=== PATIENT | male | born 1945 | race Caucasian/White ===

== ENCOUNTER 2016-04-19 21:03 | Emergency (ER) | payer OTHER ==
[2016-04-19 21:24] VITALS: TEMP 98.1
[2016-04-19] MEDS ORDERED: IBUPROFEN 600 MG TAB PO ONE (22:33)
--- NOTE | 2016-04-19 22:36 | EDPHY ---
H & P Stated Complaint: fall 2 days ago now pain to r hip thigh Time Seen by Provider: 04/19/16 21:30 HPI/ROS: CHIEF COMPLAINT: Right knee and right groin pain HISTORY OF PRESENT ILLNESS: 70-year-old male presents emergency department complaining of right knee and right groin pain. Patient had a mechanical trip and fall down 2 stairs yesterday landing on his right knee and right hip. Patient reports he has pain in this knee and hip. He is able to ambulate. No numbness or tingling in his leg. He denies saddle anesthesias, no loss of control of his bowel or bladder. No head strike, no other complaints. REVIEW OF SYSTEMS: A comprehensive 10 point review of systems is otherwise negative aside from elements mentioned in the history of present illness. Source: Patient Exam Limitations: No limitations - Personal History Current Tetanus/Diphtheria Vaccine: Unsure Current Tetanus Diphtheria and Acellular Pertussis (TDAP): Unsure - Medical/Surgical History Hx Asthma: No Hx Chronic Respiratory Disease: No Hx Diabetes: No Hx Cardiac Disease: No Hx Renal Disease: No Hx Cirrhosis: No Hx Alcoholism: No Hx HIV/AIDS: No Hx Splenectomy or Spleen Trauma: No Other PMH: BLADDER CANCER. BLADDER - REMOVED - Social History Smoking Status: Former smoker - Physical Exam Exam: GEN: Awake, alert, oriented, no acute distress RESP: nl resp effort MSK: Right knee with full flexion and extension, tenderness to palpation to patellar tendon, mild swelling, ecchymosis to knee and anterior jauregui, right hip with full range of motion, tenderness to palpation to hip flexor, no tenderness to anterior pressure up or lateral pressure to pelvis, mild tenderness to palpation to trochanteric bursa, 2+ pedal pulses, sensation intact to light touch SKIN: Superficial abrasion right knee Constitutional: Initial Vital Signs Temperature (C) 36.7 C 04/19/16 21:19 Heart Rate 92 04/19/16 21:19 Respiratory Rate 18 04/19/16 21:19 Blood Pressure 161/86 H 04/19/16 21:19 O2 Sat (%) 99 04/19/16 21:19 O2 Delivery Mode Room Air Allergies/Adverse Reactions: No Known Allergies Allergy (Unverified 03/11/09 20:55) Home Medications: Medication Instructions Recorded Zoltan 04/19/16 Methocarbamol [Robaxin-750] 750 - 1,500 mg PO QID PRN #20 04/20/16 tablet oxyCODONE/APAP 5/325 [Percocet 1 - 2 tab PO Q6H PRN #20 tab 04/20/16 5/325] Medical Decision Making - Diagnostics Imaging: Pelvis x-ray independently reviewed by me Impression: Negative for fracture with extensive postoperative changes noted. Dictated By: Bridger Blunt MD Knee x-ray independently reviewed by me Impression: Negative for fracture. Dictated By: Bridger Blunt MD CT pelvis- Impression: Negative for fracture, specifically, right hip and right groin regions are negative. Results called and discussed with Miriam Hidalgo NP at 04/20/2016 0:25 Dictated By: Bridger Blunt MD ED Course/Re-evaluation: X-ray of pelvis and right knee obtained showing no acute fracture, to the tender miss of the patient's groin and pelvis IV CT of his pelvis. This is negative for fracture. Patient is discharged home with prescription for Percocet and Robaxin. He is ambulatory at without difficulty, he agrees to follow up with his orthopedist. He is given strict return precautions. Differential Diagnosis: Diagnosis considered but not limited to fracture, dislocation, sprain - Data Points Medications Given: Discontinued Medications Oxycodone/Acetaminophen (Percocet 5/325) 1 tab PO EDNOW ONE Stop: 04/19/16 22:43 Last Admin: 04/19/16 22:45 Dose: 1 tab Departure - Departure Disposition: Home, Routine, Self-Care Clinical Impression: Strain of flexor muscle of right hip Qualifiers: Encounter type: initial encounter Qualified Code(s): S76.011A - Strain of muscle, fascia and tendon of right hip, initial encounter Contusion of right knee Qualifiers: Encounter type: initial encounter Qualified Code(s): S80.01XA - Contusion of right knee, initial encounter Condition: Good Instructions: Muscle Strain (ED), Contusion in Adults (ED) Additional Instructions: Rest, ice, elevate, take 600mg of ibuprofen every 8 hours with food for 3-5 days as needed for pain and swelling. Take Percocet as needed for severe pain. Follow up with orthopedist for pain that is not improving. Return to the emergency department for any numbness, tingling, discoloration of you limb or other concerns. Referrals: Dolbeare,Dirk, MD [Medical Doctor] - As per Instructions (Orthopedist) Prescriptions: Methocarbamol [Robaxin-750] 750 - 1,500 mg PO QID PRN #20 tablet PRN Reason: Spasms oxyCODONE/APAP 5/325 [Percocet 5/325] 1 - 2 tab PO Q6H PRN #20 tab PRN Reason: Pain, Severe
[2016-04-19] MEDS ORDERED: OXYCODONE/APAP 5/325 TAB PO ONE (22:42)
[2016-04-20 00:34] VITALS: BP 136/87; PULSE 89; RESP 16; O2SAT 95
== END 2016-04-20 00:34 | disposition home or self-care (01) ==
DX: S76.011A Strain of muscle, fascia and tendon of right hip, initial encounter (principal); S80.01XA Contusion of right knee, initial encounter; Z85.51 Personal history of malignant neoplasm of bladder; Z87.891 Personal history of nicotine dependence; W10.9XXA Fall (on) (from) unspecified stairs and steps, initial encounter

== ENCOUNTER 2016-05-19 21:16 | Emergency (ER) | payer OTHER ==
[2016-05-19] MEDS ORDERED: NAPROXEN SODIUM 220 MG TAB PO PRN (22:13)
[2016-05-19] MEDS ORDERED: LIDOCAINE 5% 1 EA PATCH TD ONE (22:44)
--- NOTE | 2016-05-19 22:53 | EDPHY ---
H & P Time Seen by Provider: 05/19/16 21:45 HPI/ROS: This is a 71-year-old male patient presenting to the emergency department ambulatory with an antalgic gait, complaining of left ankle pain with some swelling. 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 Patient does report that he has increased his physical therapy over the past couple of months may be over utilizing the foot and ankle with a rubber-band exercise S the patient not sure. The patient also reports 6 months ago he was seen at [facility] ultrasound of left lower extremity was negative for any DVTs. Patient presents today with more for complaint of left foot pain with some swelling, questionable of whether he tripped during physical therapy patient is not too sure. Denies any other complaints REVIEW OF SYSTEMS: Constitutional: No fever no chills Cardiac: No chest pain Gastrointestinal: No nausea vomiting Musculoskeletal: Left foot and ankle pain with swelling Skin: No rash Neurological: No headache or dizziness Smoking Status: Former smoker Physical Exam: CONSTITUTIONAL: patient appeared well nourished, non-ill appearing and normally developed. No acute distress. Vital signs as documented. HEENT: Normocephalic atraumatic NECK: FROM without pain RESP: Non-labored resp effort NEURO: AAOx3 ambulatory with antalgic gait EXTREMITIES: The left foot nonpitting edema, positive pain with dorsiflexion, no obvious deformity noted no lacerations no ecchymosis Positive cms intact SKIN: Warm and dry PSYCH: Normal affect, calm, no distress Constitutional: Initial Vital Signs Temperature (C) 36.7 C 05/19/16 21:21 Heart Rate 88 05/19/16 21:21 Respiratory Rate 16 05/19/16 21:21 Blood Pressure 173/104 H 05/19/16 21:21 O2 Sat (%) 96 05/19/16 21:21 O2 Delivery Mode Room Air Allergies/Adverse Reactions: No Known Allergies Allergy (Verified 05/19/16 21:23) Home Medications: Medication Instructions Recorded Zoltan 04/19/16 oxyCODONE/APAP 5/325 [Percocet 1 - 2 tab PO Q6H PRN #20 tab 04/20/16 5/325] Lidocaine 5% [Lidoderm 5% Patch 3 ea TD DAILY #0 patch 05/19/16 (*)] Medical Decision Making - Diagnostics Imaging: Imaging Impressions Ankle X-Ray 05/19/16 22:13 Impression: 1. No acute fracture. 2. Suspect old distal fibular fracture. ED Course/Re-evaluation: Discussed plan of care: Due to patient questionable injury x-ray was ordered negative for any acute fracture, suspected old fibula fracture noted. Discussed findings with patient. Patient did say he was not aware of any fracture to his left lower extremity. We discussed using [id number] lidocaine patches to placed on Skin to see if that would alleviate with some neuropathy may be having , lidocaine patch given here placed on area of pain, sent home with prescription of lidocaine patches. Discharge home---> stable, discussed discharge instructions Differential Diagnosis: Differential diagnosis considered but not limited to ankle fracture, ankle dislocation and ankle sprain Departure - Departure Disposition: Home, Routine, Self-Care Clinical Impression: Ankle pain, chronic Qualifiers: Laterality: left Qualified Code(s): M25.572 - Pain in left ankle and joints of left foot Instructions: Arthralgia (ED) Additional Instructions: 1. Decrease strenuous activity and physical therapy on left ankle. Water therapy can be less aggressive on ankle 2. Decreased prolonged pressure on left ankle 3. Naprosyn every 12 hours as needed 4. You can use topical lidocaine patches as directed 5. Follow up with your primary care physician Referrals: HECTOR FELIPE [Primary Care Provider] - As per Instructions Prescriptions: Lidocaine 5% [Lidoderm 5% Patch (*)] 3 ea TD DAILY #0 patch
[2016-05-19 23:16] VITALS: BP 166/102; PULSE 92; RESP 20; TEMP 98.2; O2SAT 94
== END 2016-05-19 23:16 | disposition home or self-care (01) ==
DX: M25.572 Pain in left ankle and joints of left foot (principal); G89.29 Other chronic pain; Z87.891 Personal history of nicotine dependence

== ENCOUNTER → 2016-06-11 | Outpatient (CLI) | payer OTHER ==
[~2016-06-11] MED LIST: IOPAMIDOL (ISOVUE-300) 100 ML BTL IV ONE
[2016-06-11 14:22] LABS: CREATININE 0.9 mg/dL (0.7-1.3); GLOMERULAR FILTRATION RATE > 60
== END ==
LOC: FIMAGING 13:29
PROVIDERS: ATTEND Physical Medicine & Rehabilitation
DX: R10.32 Left lower quadrant pain (principal); Z85.51 Personal history of malignant neoplasm of bladder
CPT/HCPCS: Q9967

== ENCOUNTER 2016-07-16 12:45 | Emergency (ER) | payer OTHER ==
[2016-07-16 13:20] VITALS: BP 151/82; PULSE 68; RESP 18; TEMP 98.1; O2SAT 99
== END 2016-07-16 14:00 | disposition left against medical advice (07) ==
DX: Z53.21 Procedure and treatment not carried out due to patient leaving prior to being seen by health care provider (principal)

== ENCOUNTER 2016-11-28 13:05 | Inpatient (IN) | payer OTHER ==
--- NOTE | 2016-11-28 13:14 | CPEKG ---
Heart Rate: 108 RR Interval: 556 P-R Interval: 152 QRSD Interval: 92 QT Interval: 320 QTC Interval: 429 P [place]: 76 QRS [place]: 61 T Wave [place]: -53 EKG Severity - OTHERWISE NORMAL ECG - EKG Impression: SINUS TACHYCARDIA EKG Impression: T-wave abnormalities inferior leads Electronically Signed By: Micah Oliver 28-Nov-2016 13:26:46
[2016-11-28] MEDS ORDERED: NS 1,000 ML IV ONE (13:30)
[2016-11-28] MEDS ORDERED: ASPIRIN 81 MG CHEWABLE TAB PO ONE (13:30)
[2016-11-28 13:38] LABS: % IMMATURE GRANULYOCYTES 0.4 % (0.0-1.1); ABSOLUTE IMMATURE GRANULOCYTES 0.03 10^3/uL (0.00-0.10); ADD DIFF? NO; ADD MORPH? YES; ADD SCAN? NO; ATYPICAL LYMPHOCYTE FLAG 10 (0-99); FRAGMENT RBC FLAG 90 (0-99); HEMATOCRIT 39.6 % (40.0-51.0); HEMOGLOBIN 12.1 g/dL (13.7-17.5); LEFT SHIFT FLG 0 (0-99); LIPEMIA HEMOLYSIS FLAG 80 (0-99); MEAN CELL HEMOGLOBIN 19.2 pg (27.9-34.1); MEAN CELL HEMOGLOBIN CONCENTR. 30.6 g/dL (32.4-36.7); PLATELET CLUMPS FLAG 60 (0-99); PLATELET COUNT 225 10^3/uL (150-400)
--- NOTE | 2016-11-28 13:39 | EDPHY ---
H & P Stated Complaint: syconeal episoide on toliet, took oxycodone prior to episoide Time Seen by Provider: 11/28/16 13:24 HPI/ROS: CHIEF COMPLAINT: Syncope HISTORY OF PRESENT ILLNESS: The patient is a 71-year-old man who follows with Dr. Lynch and is currently receiving IVIG therapy for chronic intermittent demyelinating polyneuropathy. His last IVIG infusion was 1 week ago. He also had a flu shot done yesterday and is a history of mitral valve prolapse and bladder cancer with a neobladder. He states that he is taking much more medication than he is used to including prednisone 5 mg daily and oxycodone and Aleve. He states that as he was walking up the stairs to go to the bathroom he felt extremely dizzy. He had to sit down on the bed to feel better. He complained to his of chest discomfort and shortness of breath. He felt a little better and then went to the bathroom and while having a bowel movement loss consciousness. He told his that he was going to . His states that he was pale and diaphoretic. She was able to get him off the floor and called 911. The patient went to the kitchen and was washing his hands when he felt lightheaded began to faint again but his caught him. At that point EMS arrived and brought him to the emergency department. He was also slightly hypoxic at triage. REVIEW OF SYSTEMS: Constitutional: denies: chills, fever, recent illness, recent injury EENTM: denies: blurred vision, double vision, nose congestion Respiratory: See HPI Cardiac: See HPI Gastrointestinal/Abdominal: denies: abdominal pain, diarrhea, nausea, vomiting, blood streaked stools Genitourinary: denies: dysuria, frequency, hematuria, pain Musculoskeletal: denies: joint pain, muscle pain Skin: denies: lesions, rash, jaundice, bruising Neurological: denies: headache, numbness, paresthesia, tingling, dizziness, weakness Hematologic/Lymphatic: denies: blood clots, easy bleeding, easy bruising Immunologic/allergic: denies: HIV/AIDS, transplant EXAM: GENERAL: Well-appearing, well-nourished and in no acute distress. HEAD: Atraumatic, normocephalic. EYES: Pupils equal round and reactive to light, extraocular movements intact, sclera anicteric, conjunctiva are normal. ENT: TMs normal, nares patent, oropharynx clear without exudates. Moist mucous membranes. NECK: Normal range of motion, supple without lymphadenopathy or JVD. LUNGS: Breath sounds clear to auscultation bilaterally and equal. No wheezes rales or rhonchi. HEART: Tachycardic Regular rate and rhythm without murmurs, rubs or gallops. ABDOMEN: Soft, nontender, normoactive bowel sounds. No guarding, no rebound. No masses appreciated. BACK: No CVA tenderness, no spinal tenderness, step-offs or deformities EXTREMITIES: Normal range of motion, no pitting or edema. No clubbing or cyanosis. NEUROLOGICAL: Cranial nerves II through XII grossly intact. Normal speech, normal gait. 5/5 strength, normal movement in all extremities, normal sensation PSYCH: Normal mood, normal affect. SKIN: Warm, dry, normal turgor, no visible rashes or lesions. 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, MVP, CIDP - Family History Significant Family History: No pertinent family hx - Social History Smoking Status: Former smoker Alcohol Use: Sober Drug Use: None Constitutional: Initial Vital Signs Temperature (C) 36.6 C 11/28/16 13:12 Heart Rate 106 H 11/28/16 13:12 Respiratory Rate 22 H 11/28/16 13:12 Blood Pressure 101/70 11/28/16 13:12 O2 Sat (%) 87 L 11/28/16 13:12 O2 Delivery Mode Nasal Cannula O2 (L/minute) 2 Allergies/Adverse Reactions: No Known Allergies Allergy (Verified 05/19/16 21:23) Home Medications: Medication Instructions Recorded Acetaminophen [Tylenol ES 500 mg 500 mg PO Q6 PRN 11/28/16 (*)] Cholecalciferol Vit D3 [Vitamin D3 2,000 units PO HS 11/28/16 (*)] Clobetasol 0.05% [Temovate Cream] 1 aristeo TP DAILY PRN 11/28/16 Docusate Sodium [Colace 100 MG (*)] 300 mg PO DAILY 11/28/16 Immun Glob G(IgG)/Gly/Iga 0-50 100 ml IV Q30D 11/28/16 [Gammaplex 10 Gram/100 ml Vial] Latanoprost 0.005% [Xalatan 0.005% 1 drops EACHEYE HS 11/28/16 (*)] Levocetirizine Dihydrochloride 5 mg PO DAILY 11/28/16 [Xyzal] Naloxegol Oxalate [Movantik] 25 mg PO DAILY 11/28/16 Naproxen Sodium [Aleve 220 MG (*)] 220 mg PO BID PRN 11/28/16 Nortriptyline HCl [Pamelor 25 mg 75 mg PO HS 11/28/16 (*)] Timolol 0.5% [TIMOPTIC 0.5% (*)] 1 drop EACHEYE DAILY 11/28/16 oxyCODONE IR [Oxycodone Ir (*)] 5 mg PO Q8H PRN 11/28/16 predniSONE 5 mg PO DAILY 11/28/16 Medical Decision Making - Diagnostics EKG Interpretation: An EKG obtained and was read and documented in trace view. Please see trace view for full reading and report. Sinus tachycardia with inferior T-wave abnormalities nonspecific ED Course/Re-evaluation: Patient's EKG arrived from the clinic. It is not have T-wave abnormalities in February of this year. We discussed the CT results. I will start him on heparin. I I discussed the case with Dr. Gonzales who will admit to the step- down unit. He requests echocardiogram. We discussed tPA and agreed not to pursue at this time. Differential Diagnosis: Partial list of the Differential diagnosis considered include but were not limited to; PE, arrhythmia, acute coronary disease and although unlikely based on the history and physical exam, I also considered vertigo, seizure, stroke. Critical Care Time: Critical care time spent by me, Dr. Oliver exclusive with this patient was 45 minutes, exclusive of the PA time exclusive of procedures. The organ system that was at risk was cardiovascular and I gave IV fluids, anticoagulants, consultation and testing to prevent worsening of the patient's condition - Data Points Laboratory Results: Laboratory Results 11/28/16 13:10 11/28/16 13:10 Medications Given: Acetaminophen (Tylenol) 650 mg PO Q4HRS PRN PRN Reason: Pain, Mild/Fever, Can Take PO Stop: 05/27/17 15:23 Last Admin: 11/29/16 12:31 Dose: 325 mg Cholecalciferol (Vitamin D) 2,000 units PO HS [facility] Stop: 05/27/17 20:59 Last Admin: 11/28/16 23:05 Dose: Not Given Docusate Sodium (Colace) 300 mg PO DAILY [facility] Stop: 05/28/17 08:59 Last Admin: 11/29/16 09:06 Dose: 300 mg Heparin Sodium (Porcine) (Heparin 50 Units/Ml (Premix)) 500 mls @ 0 mls/hr IV CONT ALIYA; Per Protocol PRN Reason: Protocol Stop: 05/27/17 15:44 Last Admin: 11/28/16 21:30 Dose: 500 mls Miscellaneous Medication (Non-Formulary) 1 ea PO DAILY [facility] Stop: 05/28/17 08:59 Last Admin: 11/29/16 09:03 Dose: 1 tab Miscellaneous Medication (Naloxegol Oxalate [Movantik]) 25 mg PO DAILY [facility] Stop: 05/28/17 08:59 Last Admin: 11/29/16 09:05 Dose: 1 tab Oxycodone HCl (Oxycodone Ir) 5 mg PO Q8H PRN PRN Reason: Pain, Breakthrough Stop: 12/08/16 16:20 Last Admin: 11/29/16 05:54 Dose: 5 mg Oxycodone/Acetaminophen (Percocet 5/325) 1 - 2 tab PO Q4HRS PRN PRN Reason: Pain, Severe Able to Take PO Stop: 12/08/16 15:23 Last Admin: 11/29/16 12:30 Dose: 1 tab Prednisone (Prednisone) 5 mg PO DAILY [facility] Stop: 05/28/17 08:59 Last Admin: 11/29/16 08:59 Dose: 5 mg Timolol Maleate (Timoptic 0.5%) 1 drops EACHEYE DAILY [facility] Stop: 05/28/17 08:59 Last Admin: 11/29/16 09:01 Dose: 2 drop Discontinued Medications Albuterol/Ipratropium (Duoneb) 3 ml IH QID [facility] Stop: 05/27/17 15:59 Last Admin: 11/28/16 22:41 Dose: Not Given Aspirin (Aspirin) 324 mg PO EDNOW ONE Stop: 11/28/16 13:31 Last Admin: 11/28/16 13:56 Dose: 324 mg Heparin Sodium (Porcine) (Heparin Injection) 0 unit IVP EDNOW ONE PRN Reason: Protocol Stop: 11/28/16 15:21 Last Admin: 11/28/16 16:00 Dose: 4,100 unit Heparin Sodium (Porcine) (Heparin Injection) 0 unit IVP ONCE ONE PRN Reason: Protocol Stop: 11/28/16 15:41 Last Admin: 11/28/16 22:59 Dose: Not Given Sodium Chloride (Ns) 1,000 mls @ 0 mls/hr IV EDNOW ONE; Wide Open PRN Reason: Protocol Stop: 11/28/16 13:31 Last Admin: 11/28/16 13:56 Dose: 1,000 mls Heparin Sodium (Porcine) (Heparin 50 Units/Ml (Premix)) 500 mls @ 0 mls/hr IV EDNOW ONE; Per Protocol PRN Reason: Protocol Stop: 11/28/16 15:21 Last Admin: 11/28/16 16:00 Dose: 500 mls Latanoprost (Xalatan 0.005%) 1 drops EACHEYE [facility] Stop: 05/27/17 20:59 Last Admin: 11/28/16 23:05 Dose: Not Given Nortriptyline HCl (Pamelor) 75 mg PO [facility] Stop: 05/27/17 20:59 Last Admin: 11/28/16 23:01 Dose: Not Given Departure - Departure Disposition: [facility] Clinical Impression: Bilateral pulmonary embolism Condition: Fair
[2016-11-28 13:41] LABS: MEAN CELL VOLUME 62.9 fL (81.5-99.8); RED CELL DISTRIBUTION WIDTH 24.5 % (11.5-15.2)
[2016-11-28 13:42] LABS: ANION GAP 11 mEq/L (8-16); CALCIUM 9.5 mg/dL (8.5-10.4); CARBON DIOXIDE 24 mEq/l (22-31); CHLORIDE 103 mEq/L (97-110); GLOMERULAR FILTRATION RATE > 60; GLUCOSE 129 mg/dL (70-100); POTASSIUM 3.8 mEq/L (3.5-5.2); SODIUM 138 mEq/L (134-144)
[2016-11-28 13:51] LABS: INR 0.98 (0.83-1.16); PROTIME(PATIENT) 12.9 SEC (12.0-15.0)
[2016-11-28 13:52] LABS: APTT 25.8 SEC (23.0-38.0)
[2016-11-28 13:54] LABS: TROPONIN I < 0.012 ng/mL (0.000-0.034)
[2016-11-28 14:08] LABS: HYPOCHROMIA 2+; MACROCYTES 1+; MICROCYTES 2+; POLYCHROMASIA 1+
[2016-11-28 14:10] LABS: PLATELET ESTIMATE ADEQUATE (ADEQ); TARGET CELLS 1+
[2016-11-28] MEDS ORDERED: IOPAMIDOL (ISOVUE 370) 100 ML BTL IV ONE (14:15)
[2016-11-28] MEDS ORDERED: HEPARIN 10,000 UNIT/10 ML MDV IVP ONE ×2 (15:20→15:40)
[2016-11-28] MEDS ORDERED: HEPARIN/DEXTROSE 500 ML IV ONE (15:20)
[2016-11-28] MEDS ORDERED: ONDANSETRON 4 MG/2 ML VIAL IVP PRN (15:24)
[2016-11-28] MEDS ORDERED: ONDANSETRON DISINTEGRATING 4 MG TAB PO PRN (15:24)
[2016-11-28] MEDS ORDERED: OXYCODONE/APAP 5/325 TAB PO PRN (15:24)
[2016-11-28] MEDS ORDERED: LORazepam 0.5 MG TAB PO PRN (15:24)
[2016-11-28] MEDS ORDERED: LORazepam 2 MG/ML INJ IVP PRN (15:24)
[2016-11-28] MEDS ORDERED: HEPARIN 10,000 UNIT/10 ML MDV IVP PRN (15:40)
[2016-11-28] MEDS ORDERED: HEPARIN/DEXTROSE 500 ML IV SCH (15:45)
[2016-11-28] MEDS ORDERED: ACETAMINOPHEN 500 MG TAB PO PRN (16:21)
[2016-11-28] MEDS ORDERED: CLOBETASOL 0.05% 15 GM CRTUBE TP PRN (16:21)
--- NOTE | 2016-11-28 17:26 | PDGENHP ---
History and Physical - Chief Complaint syncope - History of Present Illness This is a 71 yo male with a hx of LLE DVT p/w chest pain and syncope while having a BM. CTA c/w bilateral moderate to large volume P.E. involving all lobes. Earlier today he felt his chest tight when walking up the stairs and he was dizzy. This resolved but then while having a BM he became diaphoretic and had a syncopal episode. In the ED, CTA was obtained with results per above. EKG c/w T wave abnormalities in the inferior leads, but troponin was negative. He was treated on Xarelto for non provoked LLE DVT for 3 months and stopped on November 15. He was recently diagnosed with CIDP and has been receiving IVIG with his last treatment about a week ago. He does not have known CAD, CHF, Afib, or CV disease. He c/o of bilateral leg pain which is essentially unchanged and is chronic. He does have LLE swelling/edema but he says this is chronic. He had a repeat LLE US before stopping Xarelto in early November and this was negative for DVT. He does not have a prior hx of P.E. He does not have known hypercoagulable disease. He denies constitutional sxs. Currently he denies any chest pain, palpitations, or SOB. He is on 2 L by LA. He is able to take a deep breath. He is able to ambulate w/o difficulty. He feels back to baseline PMHX: bladder cancer, LE neuropathy, CIDP, Left sciatic nerve injury, MVP SocHx: former smoker, no E/I FmHx: LA History Information - Allergies/Home Medication List Allergies/Adverse Reactions: No Known Allergies Allergy (Verified 05/19/16 21:23) Home Medications: Acetaminophen [Tylenol ES 500 mg (*)] 500 mg PO Q6 PRN 11/28/16 [Last Taken 09:00] Cholecalciferol Vit D3 [Vitamin D3 (*)] 2,000 units PO HS 11/28/16 [Last Taken 11/27/16] Clobetasol 0.05% [Temovate Cream] 1 aristeo TP DAILY PRN 11/28/16 [Last Taken 2 Days Ago ~11/26/16] Docusate Sodium [Colace 100 MG (*)] 300 mg PO DAILY 11/28/16 [Last Taken ] Immun Glob G(IgG)/Gly/Iga 0-50 [Gammaplex 10 Gram/100 ml Vial] 100 ml IV Q30D [Last Taken 5 Days Ago ~11/23/16] Latanoprost 0.005% [Xalatan 0.005% (*)] 1 drops EACHEYE HS 11/28/16 [Last Taken 11/27/16] Levocetirizine Dihydrochloride [Xyzal] 5 mg PO DAILY 11/28/16 [Last Taken ] Naloxegol Oxalate [Movantik] 25 mg PO DAILY 11/28/16 [Last Taken 11/28/16] Naproxen Sodium [Aleve 220 MG (*)] 220 mg PO BID PRN 11/28/16 [Last Taken 09:00] Nortriptyline HCl [Pamelor 25 mg (*)] 75 mg PO HS 11/28/16 [Last Taken 11/27/16] Timolol 0.5% [TIMOPTIC 0.5% (*)] 1 drop EACHEYE DAILY 11/28/16 [Last Taken 11/28] oxyCODONE IR [Oxycodone Ir (*)] 5 mg PO Q8H PRN 11/28/16 [Last Taken 11/28/16 11 :00] predniSONE 5 mg PO DAILY 11/28/16 [Last Taken 11/28/16] I have personally reviewed and updated: medical history, social history, surgical history - Social History Smoking Status: Former smoker Alcohol Use: Sober Drug Use: None Review of Systems Review of Systems: ROS: 10pt was reviewed & negative except for what was stated in HPI & below Physical Exam Physical Exam: Temp Pulse Resp BP Pulse Ox 36.9 C 78 18 132/85 H 96 11/28/16 14:00 11/28/16 14:00 11/28/16 14:00 11/28/16 14:00 11/28/16 14:00 Constitutional: no apparent distress, appears nourished, not in pain Eyes: PERRL, EOMI Ears, Nose, Mouth, Throat: moist mucous membranes, hearing normal Cardiovascular: regular rate and rhythym, no murmur, rub, or gallop, edema (LLE edema 1+) Respiratory: no respiratory distress, no rales or rhonchi, clear to auscultation Gastrointestinal: normoactive bowel sounds, soft, non-tender abdomen Skin: warm Neurologic: AAOx3 Psychiatric: interacting appropriately, not anxious, not encephalopathic Lab Data & Imaging Review 11/28/16 13:10 11/28/16 13:10 WBC 7.76 10^3/uL (3.80-9.50) 11/28/16 13:10 RBC 6.30 10^6/uL (4.40-6.38) 11/28/16 13:10 Hgb 12.1 g/dL (13.7-17.5) L 11/28/16 13:10 Hct 39.6 % (40.0-51.0) L 11/28/16 13:10 MCV 62.9 fL (81.5-99.8) L 11/28/16 13:10 MCH 19.2 pg (27.9-34.1) L 11/28/16 13:10 MCHC 30.6 g/dL (32.4-36.7) L 11/28/16 13:10 RDW 24.5 % (11.5-15.2) H 11/28/16 13:10 Plt Count 225 10^3/uL (150-400) 11/28/16 13:10 MPV TNP 11/28/16 13:10 Neut % (Auto) 75.7 % (39.3-74.2) H 11/28/16 13:10 Lymph % (Auto) 13.1 % (15.0-45.0) L 11/28/16 13:10 Brewster % (Auto) 8.0 % (4.5-13.0) 11/28/16 13:10 Eos % (Auto) 2.2 % (0.6-7.6) 11/28/16 13:10 Baso % (Auto) 0.6 % (0.3-1.7) 11/28/16 13:10 Nucleat RBC Rel Count 0.0 % (0.0-0.2) 11/28/16 13:10 Absolute Neuts (auto) 5.87 10^3/uL (1.70-6.50) 11/28/16 13:10 Absolute Lymphs (auto) 1.02 10^3/uL (1.00-3.00) 11/28/16 13:10 Absolute Monos (auto) 0.62 10^3/uL (0.30-0.80) 11/28/16 13:10 Absolute Eos (auto) 0.17 10^3/uL (0.03-0.40) 11/28/16 13:10 Absolute Basos (auto) 0.05 10^3/uL (0.02-0.10) 11/28/16 13:10 Absolute Nucleated RBC 0.00 10^3/uL (0-0.01) 11/28/16 13:10 Immature Gran % 0.4 % (0.0-1.1) 11/28/16 13:10 Immature Gran # 0.03 10^3/uL (0.00-0.10) 11/28/16 13:10 Platelet Estimate ADEQUATE (ADEQ) 11/28/16 13:10 Polychromasia 1+ H 11/28/16 13:10 Hypochromasia 2+ H 11/28/16 13:10 Microcytic Cells 2+ H 11/28/16 13:10 Target Cells 1+ H 11/28/16 13:10 Oval Macrocytes 1+ H 11/28/16 13:10 PT 12.9 SEC (12.0-15.0) 11/28/16 13:10 INR 0.98 (0.83-1.16) 11/28/16 13:10 APTT 25.8 SEC (23.0-38.0) 11/28/16 13:10 D-Dimer 15.80 ug/mLFEU (0.00-0.50) H 11/28/16 13:10 Sodium 138 mEq/L (134-144) 11/28/16 13:10 Potassium 3.8 mEq/L (3.5-5.2) 11/28/16 13:10 Chloride 103 mEq/L (97-110) 11/28/16 13:10 Carbon Dioxide 24 mEq/l (22-31) 11/28/16 13:10 Anion Gap 11 mEq/L (8-16) 11/28/16 13:10 BUN 26 mg/dL (7-23) H 11/28/16 13:10 Creatinine 1.0 mg/dL (0.7-1.3) 11/28/16 13:10 Estimated GFR > 60 11/28/16 13:10 Glucose 129 mg/dL (70-100) H 11/28/16 13:10 Calcium 9.5 mg/dL (8.5-10.4) 11/28/16 13:10 Troponin I < 0.012 ng/mL (0.000-0.034) 11/28/16 13:10 Assessment & Plan Assessment: #Bilateral P.E. with evidence of Right Hear Strain #Extensive LLE DVT #Chest pain #Syncope likely due to the P.E. and right hear strain Plan: The patient currently appears stable and does not report symptoms. Heparin has been started in the E.D. CT shows extensive bilateral clots as well as right sided strain.. He is hemodynamically stable. I have ordered a LLE US which shows extensive LLE DVT thigh down. Given the findings, I have d/w IR placement of IVC filter today. Troponin was negative. I have ordered a stat TTE and repeat troponin. As he is not currently symptomatic and if TTE is acceptable, will avoid TPA. Cont with Heparin drip. Will be admitted to step down. He is currently NPO. He will need lifelong AC. Will likely need to avoid IVIG. Code status full code Total critical care time spent directly on pt care including coordination of care is 85 minutes
[2016-11-28] MEDS ORDERED: NS W/ 20 KCl/L 1,000 ML IV SCH (17:45)
[2016-11-28] MEDS ORDERED: fentaNYL 100 MCG/2 ML INJ ONE (19:08)
[2016-11-28] MEDS ORDERED: MIDAZOLAM 2 MG/2 ML VIAL ONE (19:10)
[2016-11-28] MEDS ORDERED: IOPAMIDOL (ISOVUE-300) 100 ML BTL ONE (19:55)
--- NOTE | 2016-11-28 19:57 | POSTOPPROG ---
Post Op Note Date of Operation: 11/28/16 Surgeon: Ab Barrios Anesthesia: IV Sedation Pre-op Diagnosis: PE, DVT LLE Post-op Diagnosis: same Indication: Moderately large volume PE, mod large volume DVT Procedure: IVC filter Findings: Normal IVC. Filter in good position L2-3 Inf/Abcess present in the surg proc area at time of surgery?: No EBL: Minimal Complications: 0
[2016-11-28] MEDS ORDERED: oxyCODONE IR 5 MG TAB ONE (20:29)
[2016-11-28] MEDS: oxyCODONE IR 5 MG TAB PO PRN (20:31)
[2016-11-28] MEDS ORDERED: NORTRIPTYLINE HCL 25 MG CAP PO SCH (21:00)
[2016-11-28] MEDS ORDERED: LATANOPROST 0.005% 2.5 ML OPHT DROPS EACHEYE SCH (21:00)
[2016-11-28] MEDS: IPRATROPIUM/ALBUTEROL 3 ML DEYVIAL IH SCH ×2 (22:02→22:41)
[2016-11-28] MEDS ORDERED: IPRATROPIUM/ALBUTEROL 3 ML DEYVIAL IH PRN (22:47)
[2016-11-28] MEDS: CHOLECALCIFEROL VIT D3 2,000 UNITS TAB/CAP PO SCH (23:05)
[2016-11-29] MEDS: ACETAMINOPHEN 325 MG TAB PO PRN ×3 (02:00→21:13)
[2016-11-29 04:03] LABS: % IMMATURE GRANULYOCYTES 0.2 % (0.0-1.1); ABSOLUTE IMMATURE GRANULOCYTES 0.02 10^3/uL (0.00-0.10); ADD DIFF? NO; ADD MORPH? YES; ADD SCAN? NO; ATYPICAL LYMPHOCYTE FLAG 0 (0-99); FRAGMENT RBC FLAG 80 (0-99); HEMATOCRIT 33.1 % (40.0-51.0); HEMOGLOBIN 10.3 g/dL (13.7-17.5); LEFT SHIFT FLG 0 (0-99); LIPEMIA HEMOLYSIS FLAG 80 (0-99); MEAN CELL HEMOGLOBIN 19.1 pg (27.9-34.1); MEAN CELL HEMOGLOBIN CONCENTR. 31.1 g/dL (32.4-36.7); PLATELET CLUMPS FLAG 40 (0-99); PLATELET COUNT 193 10^3/uL (150-400); RED BLOOD CELL COUNT 5.39 10^6/uL (4.40-6.38)
[2016-11-29 04:04] LABS: MEAN CELL VOLUME 61.4 fL (81.5-99.8); RED CELL DISTRIBUTION WIDTH 23.5 % (11.5-15.2)
[2016-11-29 04:32] LABS: ELLIPTOCYTES 1+; HYPOCHROMIA 2+; MACROCYTES 1+; MICROCYTES 2+; POLYCHROMASIA 1+; TARGET CELLS 1+
[2016-11-29 04:34] LABS: LARGE PLATELETS PRESENT; PLATELET ESTIMATE ADEQUATE (ADEQ)
[2016-11-29 04:40] LABS: ANION GAP 7 mEq/L (8-16); CARBON DIOXIDE 22 mEq/l (22-31); CHLORIDE 107 mEq/L (97-110); CREATININE 0.8 mg/dL (0.7-1.3); GLOMERULAR FILTRATION RATE > 60; GLUCOSE 92 mg/dL (70-100); MAGNESIUM 1.8 mg/dL (1.6-2.3); POTASSIUM 3.7 mEq/L (3.5-5.2); SODIUM 136 mEq/L (134-144)
[2016-11-29] MEDS: oxyCODONE IR 5 MG TAB PO PRN ×2 (05:54→18:20)
--- NOTE | 2016-11-29 08:24 | PDMN ---
Medical Necessity Medical necessity: M290 Pulm. embolism- bilat. mod to large volume, 87% RA, 96 % 2L., EKG c T wave abnormalities, - R heart strain, M350 DVT - extensive DVT LLE, IVC filter placed. - pt with HX of CIDP last IVIG 1 week ago., HX of DVT previously on Xarelto- stopped two weeks ago.
[2016-11-29] MEDS: predniSONE 5 MG TAB PO SCH (08:59)
[2016-11-29] MEDS ORDERED: TIMOLOL 0.5% 15 ML OPHT.BTL EACHEYE SCH (09:00)
[2016-11-29] MEDS ORDERED: Naloxegol Oxalate [Movantik] 25 MG PO SCH (09:00)
[2016-11-29] MEDS ORDERED: CETIRIZINE 10 MG TAB PO SCH (09:00)
[2016-11-29] MEDS: TIMOLOL 0.5% 15 ML OPHT.BTL EACHEYE SCH (09:01)
[2016-11-29] MEDS: LEVOCETIRIZINE 5 MG PO SCH (09:03)
[2016-11-29] MEDS: Naloxegol Oxalate [Movantik] 25 MG PO SCH (09:05)
[2016-11-29] MEDS: DOCUSATE SODIUM 100 MG CAP PO SCH (09:06)
--- NOTE | 2016-11-29 09:18 | CPEKG ---
Heart Rate: 103 RR Interval: 583 P-R Interval: 168 QRSD Interval: 88 QT Interval: 328 QTC Interval: 430 P [place]: 78 QRS [place]: 71 T Wave [place]: -50 EKG Severity - ABNORMAL ECG - EKG Impression: SINUS TACHYCARDIA EKG Impression: PROBABLE LEFT ATRIAL ABNORMALITY EKG Impression: NONSPECIFIC T ABNORMALITIES, INFERIOR LEADS Electronically Signed By: Gino Sapp 29-Nov-2016 13:44:35
--- NOTE | 2016-11-29 10:29 | ECHO ---
[email or web address] [address] [address] Main: [phone] Fax: Transthoracic Echocardiogram Name: JUAN J RENEE MR#: [id number] Study Date: 11/28/2016 Study Time: 05:52 PM Date of : 1945 Age: 71 year(s) Height: 175.3 cm (69 in.) Weight: 68.04 kg (150 lb.) BSA: 1.83 m2 Gender: Male Examination: Echo Indication: Chest pain/Pulmonary embolus Image Quality: Contrast: Requested by: Micah Oliver BP: / Heart Rate: Rhythm: Indication: Chest pain/Pulmonary embolus Procedure Staff Field Technical Assistant: Cindy Wise Reading Physician: Bea Eldridge Requesting Provider: Conclusions: Normal size left ventricle. Borderline concentric LV hypertrophy. Normal global systolic LV function. EF is 65 %. The LV septal wall is flattened.. Mildly dilated right ventricle. Mildly reduced RV function. The right atrium is mildly dilated. Mild mitral valve regurgitation is present. Mild tricuspid regurgitation is present. The pulmonary artery pressure is mildly increased. RVSP is 45mmHG.. There is no previous echocardiogram for comparison. Measurements: Chambers Valvular Assessment AV/MV Valvular Assessment TV/PV Normal Normal Normal Name Value Range Name Value Range Name Value Range Ao Beth (MM): 3.2 cm (2.2 cm-3.7 AV Vmax: 1.08 m/s (1 m/s-1.7 TR Vmax: 3.00 mm/s ( - ) cm) m/s) TR PGmax: 36 mmHg ( - ) IVSd (2D): 0.8 cm (0.6 cm-1.1 AV maxP mmHg ( - ) syst. PAP: 46 mmHg ( - ) cm) LVDd (2D): 4.8 cm (4.2 cm-5.9 cm) LVDs (2D): 2.8 cm (2.1 cm-4 cm) LVPWd (2D): 1.0 cm (0.6 cm-1 cm) LVEF (MOD4): 65 % (>=55 %) Patient: JUAN J RENEE Study Date: 11/28/2016 Page 1 of 2 05:52 PM Continued Measurements: Chambers Valvular Assessment TV/PV Name Value Name Value LADs: 3.0 cm CVP (est.): 10 mmHg LADs Lon.5 cm LA Area: 15.1 cm2 Findings: Left Ventricle: Normal size left ventricle. Borderline concentric LV hypertrophy. Normal global systolic LV function. EF is 65 %. The LV septal wall is flattened.. Right Ventricle: Mildly dilated right ventricle. Mildly reduced RV function. Left Atrium: The left atrium is normal in size. Right Atrium: The right atrium is mildly dilated. Mitral Valve: The mitral valve is normal in appearance. Mild mitral valve regurgitation is present. Aortic Valve: The aortic valve is normal in appearance. Tricuspid Valve: The tricuspid valve appears normal. Mild tricuspid regurgitation is present. The pulmonary artery pressure is mildly increased. RVSP is 45mmHG.. Pulmonic Valve: Pulmonary valve not well visualized. Pericardium: Trivial pericardial effusion. (No Signature Object) Patient: JUAN J RENEE Study Date: 11/28/2016 Page 2 of 2 05:52 PM [id number]
[2016-11-29] MEDS ORDERED: WARFARIN SODIUM 5 MG TAB PO SCH (16:00)
--- NOTE | 2016-11-29 16:10 | HOSPPROG ---
Hospitalist Progress Note Assessment/Plan: * Large acute PE + DVT -s/p IVC placement due to high risk DVT -removed IVC filter 6-8 weeks -hypercoagulable - came off Xarelto recently * Possible anti-phospholipid antibody syndrome -consult hematology to review outpatient labs -transition to warfarin rather than Xarelto * CIDP -monthly IVIG * Bladder Ca s/p neobladder * Hematuria -develops gross blood when on anti-coagulation -check renal US * Microcytic anemia - check iron studies -chronic blood loss - hematuria and hemorrhoid bleed when anticoagulated * Syncope -due to right heart strain Subjective: Lots of left leg pain Objective: Vital Signs Temp Pulse Resp BP Pulse Ox 36.7 C 95 27 H 129/81 H 97 11/29/16 13:05 11/29/16 12:00 11/29/16 12:00 11/29/16 12:00 11/29/16 12:00 Laboratory Results 11/29/16 03:50 11/29/16 03:50 11/28/16 11/29/16 11/30/16 05:59 05:59 05:59 Intake Total 808 Balance 808 PT 12.9 SEC (12.0-15.0) 11/28/16 13:10 INR 0.98 (0.83-1.16) 11/28/16 13:10 d/w Dr. Lev Aleman ICU rounds - large PE, doing well now d/w Dr. Wills - hematology to consult tele - NSR EKG viewed, my personal interpretation is - NSR, no concerning changes - Physical Exam Constitutional: no apparent distress, appears nourished, not in pain Cardiovascular: regular rate and rhythym, no murmur, rub, or gallop Respiratory: no respiratory distress, no rales or rhonchi, clear to auscultation Gastrointestinal: normoactive bowel sounds, soft, non-tender abdomen, no palpable masses Skin: no rashes or abrasions, no fluctuance, no induration Neurologic: AAOx3, sensation intact bilaterally Psychiatric: interacting appropriately, not anxious, not encephalopathic, thought process linear ICD10 Worksheet Patient Problems: Problems Problem Status Onset Bilateral pulmonary embolism Acute
[2016-11-29] MEDS: CHOLECALCIFEROL VIT D3 2,000 UNITS TAB/CAP PO SCH (20:58)
[2016-11-29] MEDS ORDERED: LATANOPROST 0.005% 2.5 ML OPHT DROPS EACHEYE SCH (21:00)
[2016-11-29] MEDS ORDERED: NORTRIPTYLINE HCL 25 MG CAP PO SCH (21:00)
--- NOTE | 2016-11-29 21:24 | GCON ---
[f rep st] CONSULTATION REFERRING PHYSICIAN: Angy Gupta MD HISTORY OF PRESENT ILLNESS: I was asked by Dr. Angy Gupta to evaluate this 71-year-old male with a recent DVT and significant pulmonary embolism. To review, this patient has had issues with a difficult to diagnose neurologic issue involving his left leg. Some of it seems to be characterized as inflammation and thickening of the left sciatic nerve. There was some concern this might be an autoimmune issue. He has had a left-sided foot drop and somewhat decreased use of his left leg. He traveled to [facility] in July of 2016 to see a neurosurgeon. A lower extremity ultrasound demonstrated a partially occlusive clot in the left popliteal vein. He was started on Xarelto 15 mg twice daily. This is felt to be a provoked blood clot and his Xarelto was stopped after 3 months of anticoagulation. Unfortunately, about 1 week after stopping the Xarelto, he developed chest pain and syncope, and a CT angiogram showed bilateral trskcqzz-qe-desrh volume pulmonary embolism. Ultrasound of his lower extremities showed intraluminal thrombus involving the left femoral vein distally through the popliteal vein into the calf veins, also including the posterior tibialis and peroneal veins. He was hospitalized, placed on intravenous heparin. There was evidence of right heart strain. An IVC filter was placed. He is doing better today. The patient has had a fairly extensive hypercoagulable workup in the past, including in 2012 normal dilute Zia viper venom time, normal antithrombin protein C and protein S studies, and there was no evidence of lupus anticoagulant. Flow cytometry was negative for PNH. Factor V Leiden was negative. Prothrombin gene was negative. I should note this was prompted by a nonocclusive thrombus in a short segment of right mesenteric vein after patient had a cystectomy for persistent superficial bladder cancer. He had recent labs with his ccie, Dr. Chen, drawn while on Xarelto, which showed an elevated hexagonal phospholipid and dilute Zia viper venom time. Both anticardiolipin antibodies and beta 2 glycoprotein studies are normal. The patient has 2 significant past medical issues. One is superficial bladder cancer diagnosed when he was in his 30s. Eventually, he had a cystectomy at [facility] with creation of a neobladder; this was all in 2011. He tells me recently he had a CT scan within the last few months of his chest, abdomen and pelvis and a urogram, which were negative. He did have an MRI of his pelvis , which showed the inflammation in the left sciatic nerve. Second issue is the neuropathy and left foot drop. There is some concern that this might be autoimmune in nature, and he had recently been started on IVIG. I believe he has had about 3 doses, the most recent on November 13. Of note, on November 09, i.e., just about 3 weeks ago, he had a left leg ultrasound at [facility] that was unremarkable. Currently, he is awake and alert in the ICU. PAST MEDICAL HISTORY: As noted above, bladder cancer, lower extremity neuropathy, possibly related to CIDP, mitral valve prolapse. He is a former smoker. FAMILY HISTORY: Negative for clotting. 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 He has 1 daughter, age 23. PHYSICAL EXAMINATION: GENERAL: Today, he is a pleasant, very alert male in no acute distress. VITAL SIGNS: Blood pressure 162/86. He is afebrile. Sat on room air is 99%. HEENT: He is not icteric. NECK: I detect no adenopathy. LUNGS: Clear. CARDIAC: Unremarkable. ABDOMEN: Postsurgical changes. EXTREMITIES: There may be modest swelling of the left leg. NEUROLOGIC: Left foot drop. LABORATORY DATA: White count is 9.6, hemoglobin 10.3, MCV 61.4, platelets are 193,000. I should note he has a previous history of a thalassemia. I do note ferritin recently was low at 6.8, iron was 37, TIBC 428, sat was 9% consistent with iron deficiency, and he was placed on iron supplementation. I should also note that his hemoglobin dropped a bit over the last few months, consistent with iron deficiency. IMPRESSION: Patient with a past history of mesenteric clot and a more recent [id number] clot in his left leg, treated with Xarelto with resolution, however, with recurrence of his left leg clot and a very significant pulmonary embolism shortly after stopping Xarelto; this was a life-threatening event and he is being appropriately treated. I think, given this combination of circumstances, that I would recommend lifelong anticoagulation. I think would be reasonable when he is stabilized to transition him to subcutaneous Lovenox. I would not absolutely rule out eventually placing him back on Xarelto. I was asked to consult as to whether he had antiphospholipid syndrome. I think it is actually unlikely and I think the previous lab tests including the elevated dilute Zia viper venom test and hexagonal phospholipid test were drawn while on Xarelto anticoagulation and, as such, are unreliable. The fact that he does not have any evidence of anticardiolipin or beta 2 glycoprotein antibodies is suggestive that he does not have this syndrome. In terms of the larger question as to why he has the clot, I am uncertain. He had a fairly extensive hypercoagulable workup in the past, which was negative. IVIG possibly could have been some contributing factor but, again, I think that is probably unlikely. He may well have an autoimmune issue with his nerve, but I do not think that would necessarily cause a clot. He does raise the interesting question which is somewhat peripheral that his many years of being treated with BCG and interferon for superficial bladder cancer could have stimulated his immune system. I think that is an interesting theory and perhaps plausible. He does not seem to have an underlying malignancy. He had a recent CT of the chest, abdomen, and pelvis. However, I do note the fairly recent onset of an iron deficiency anemia and I think it might be reasonable to consider a gastrointestinal workup when he is stabilized, including upper and lower gastrointestinal endoscopy and possibly camera pill study. There are a number of other issues he was asking me about including some mildly positive antibodies to Magali and possibly Lyme disease, although I think it is unlikely that these are playing a significant role in his current situation. Our service will continue to follow with you. Copy requested to: Dr. Joshua Chen /[id number]/MODL MTDD
[2016-11-30] MEDS: oxyCODONE IR 5 MG TAB PO PRN (00:30)
[2016-11-30 05:23] LABS: % IMMATURE GRANULYOCYTES 0.4 % (0.0-1.1); ABSOLUTE IMMATURE GRANULOCYTES 0.04 10^3/uL (0.00-0.10); ADD DIFF? NO; ADD MORPH? YES; ADD SCAN? NO; ATYPICAL LYMPHOCYTE FLAG 10 (0-99); FRAGMENT RBC FLAG 90 (0-99); HEMATOCRIT 33.9 % (40.0-51.0); HEMOGLOBIN 10.6 g/dL (13.7-17.5); LEFT SHIFT FLG 0 (0-99); LIPEMIA HEMOLYSIS FLAG 80 (0-99); MEAN CELL HEMOGLOBIN 19.3 pg (27.9-34.1); MEAN CELL HEMOGLOBIN CONCENTR. 31.3 g/dL (32.4-36.7); PLATELET CLUMPS FLAG 20 (0-99); PLATELET COUNT 209 10^3/uL (150-400)
[2016-11-30] MEDS: ACETAMINOPHEN 325 MG TAB PO PRN (05:29)
[2016-11-30 05:30] LABS: ANION GAP 11 mEq/L (8-16); CARBON DIOXIDE 22 mEq/l (22-31); CHLORIDE 105 mEq/L (97-110); CREATININE 0.9 mg/dL (0.7-1.3); GLOMERULAR FILTRATION RATE > 60; GLUCOSE 90 mg/dL (70-100); POTASSIUM 3.7 mEq/L (3.5-5.2); SODIUM 138 mEq/L (134-144)
[2016-11-30 05:34] LABS: MEAN CELL VOLUME 61.6 fL (81.5-99.8); RED CELL DISTRIBUTION WIDTH 23.7 % (11.5-15.2)
[2016-11-30 05:39] LABS: % SATURATION 8 % (20-55); TOTAL IRON BINDING CAPACITY 379 ug/dL (260-490)
[2016-11-30 06:06] LABS: FERRITIN - BCH 19.9 ng/mL (17.9-464.0)
[2016-11-30 06:09] LABS: MACROCYTES 1+; MICROCYTES 2+; PLATELET ESTIMATE ADEQUATE (ADEQ); TARGET CELLS 1+
[2016-11-30 06:10] LABS: HYPOCHROMIA 2+; POLYCHROMASIA 1+
[2016-11-30] MEDS ORDERED: oxyCODONE IR 5 MG TAB PO PRN (06:30)
[2016-11-30 08:01] VITALS: O2SAT 96
[2016-11-30] MEDS: predniSONE 5 MG TAB PO SCH (08:10)
[2016-11-30] MEDS: DOCUSATE SODIUM 100 MG CAP PO SCH (08:10)
[2016-11-30] MEDS: LEVOCETIRIZINE 5 MG PO SCH (08:11)
[2016-11-30] MEDS: TIMOLOL 0.5% 15 ML OPHT.BTL EACHEYE SCH (08:11)
[2016-11-30] MEDS: Naloxegol Oxalate [Movantik] 25 MG PO SCH (08:12)
[2016-11-30] MEDS ORDERED: POLYETHYLENE GLYCOL 3350 17 GM PKT PO PRN (09:32)
[2016-11-30] MEDS ORDERED: ENOXAPARIN 60 MG/0.6 ML SYR SC SCH (10:00)
[2016-11-30] MEDS ORDERED: ENOXAPARIN 80 MG/0.8 ML SYR SC SCH (10:00)
--- NOTE | 2016-11-30 10:53 | SOAPPROG ---
SOAP Progress Note Assessment/Plan: Assessment: 1. PE, doing well 2.Neuropathy 3. iron def anemia 4. history bladder cancer Plan:Transition to Lovenox, follow up Dr Shen, consider GI eval as outpt although blood loss could be related to hemorrhoidal bleeding and mild hematuria from danilo bladder 11/30/16 10:50 Subjective: Feels well Objective: Vital Signs Temp Pulse Resp BP Pulse Ox 97.3 F 86 16 147/92 H 96 11/30/16 08:00 11/30/16 08:00 11/30/16 08:00 11/30/16 08:00 11/30/16 08:00 Laboratory Results 11/30/16 04:44 11/30/16 04:44 11/29/16 11/30/16 12/01/16 05:59 05:59 05:59 Intake Total 808 1652 Balance 808 1652 PT 12.9 SEC (12.0-15.0) 11/28/16 13:10 INR 0.98 (0.83-1.16) 11/28/16 13:10 ICD10 Worksheet Patient Problems: Problems Problem Status Onset Bilateral pulmonary embolism Acute
[2016-11-30 11:26] VITALS: BP 143/96; PULSE 85; RESP 14; TEMP 97.9
--- NOTE | 2016-11-30 11:31 | ASMTCMCOM ---
CM Note CM Note Notes: D/W RN. Anticipate pt will dc home w/ when medically ready. Date Signed: 11/30/2016 11:30 AM Electronically Signed By:Nelli Chaparro RN
[2016-11-30] MEDS ORDERED: IRON POLYSAC/IRON HEME 28 MG TAB PO SCH (16:00)
--- NOTE | 2016-11-30 17:31 | ASDISCHSUM ---
Discharge Information Plan Status:Home with No Needs Medically Cleared to Leave: Discharge Date:11/30/2016 03:39 PM CM D/C Disposition:Home, Routine, Self-Care ADT D/C Disposition:Home, Routine, Self-Care Projected Discharge Date:11/30/2016 03:39 PM Transportation at D/C: Discharge Delay Reason: Follow-Up Date:11/30/2016 03:39 PM Discharge Slot: Final Diagnosis: Placement Information Patient Contact Information Contact Name:FINA Relationship: Address:[address] City:[place] Alternate Phone: [facility]/Zip Code:[place] [address] Email: Financial Information Financial Class:HMO and PPO Plans Primary Plan Desc:[employer] PPO Primary Plan Number:[id number] Secondary Plan Desc:MEDICARE INPATIENT Secondary Plan Number:[id number] Assessment Information [facility] CM Progress Note CM Note CM Note Notes: D/W RN. Anticipate pt will dc home w/ when medically ready. Date Signed: 11/30/2016 11:30 AM Electronically Signed By:Nelli Chaparro RN Intervention Information Intervention Type:*Incorrect Registration Date of Service:11/29/2016 08:09 AM Patient Type:Observation Staff Member:RUIZ Ahuja, Mindy Hours: Discipline: Severity: Comment: Intervention Type:*IM-Signed Date of Service:11/30/2016 03:33 PM Patient Type:Inpatient Staff Member:Margarette Mcclendon Hours: Discipline: Severity: Comment:
--- NOTE | 2016-11-30 18:53 | GDS ---
[f rep st] DISCHARGE SUMMARY DISCHARGE DIAGNOSES: 1. Large acute pulmonary embolus and DVT, status post inferior vena cava filter. 2. Hypercoagulable state with rapid recurrence of clot after discontinuing Xarelto. 3. Chronic inflammatory demyelinating polyneuropathy, on intravenous immunoglobulin. 4. Bladder cancer, status post neobladder. 5. Hematuria. 6. Iron deficiency anemia. 7. Thalassemia minor. 8. Right heart strain and syncope due to large pulmonary embolus. HISTORY: The patient is a 71-year-old male who had a previous DVT and recently came off Xarelto. He now presents with a very large acute pulmonary embolus and DVT. Due to the large nature of his DVT and high risk nature of his PE, an IVC filter was placed on admission. He was then treated with IV h eparin and then transitioned to subcu Lovenox. He recently had a hypercoagulable panel performed by his vascular physician in [place] that showed an elevated DRVVT, and there was concern for possible antiphos pholipid antibody syndrome. Dr. Wills of Hematology was consulted. He reviewed the lab results, and discovered that this blood was drawn while he was on Xarelto, which he thinks created a false-positi ve DRVVT. The remainder of his anticardiolipin antiphospholipid antibodies were negative. He did, h owever, want the patient to be discharged on subcutaneous Lovenox, and follow up with Dr. Yamileth Shen, his usual oncologist, prior to initiating any long-term anticoagulation strategy. He was found to have an iron deficiency anemia, although he is chronically microcytic from his thalas semia minor. He does have increased bleeding hemorrhoids while on anticoagulation. He also has laura turia from his neobladder when on anticoagulation. Renal ultrasound was negative. Hematology recomm ends EGD and colonoscopy as an outpatient. He has trouble tolerating iron therapy due to constipatio n. It was recommended that he initiate Bifera, as this may be better tolerated from a gastrointestin al standpoint. If he really cannot tolerate oral iron, IV iron could be considered. He was monitored and was extraordinarily stable throughout his hospitalization here without tachycard ia or hypoxemia. He is very anxious for discharge home. He does understand the high risk nature of his extensive DVT, and does wish to discharge, which Dr. Wills and myself did eventually feel comfort able with. DISCHARGE MEDICATIONS: Please see computer record for full detailed list. NEW MEDICATIONS: 1. Lovenox 70 mg subcu twice daily, to continue until followup with Dr. Yamileth Shen next week. One we ek of Lovenox was dispensed. 2. Bifera 28 mg p.o. t.i.d. DISCHARGE INSTRUCTIONS: 1. Remove IVC filter in 6-[address] Barrios. 2. Outpatient GI consultation for EGD and colonoscopy. Greater than 30 minutes of time was spent arranging this discharge. The patient was seen and examine d by me on the day of discharge. /[id number]/MODL
[2016-11-30] MEDS ORDERED: NORTRIPTYLINE HCL 50 MG CAP PO SCH (21:00)
[2016-12-24] MEDS ORDERED: IMMUN GLOB IV SCH (09:00)
[2016-12-24] MEDS ORDERED: IGA IV SCH (09:00)
[2016-12-24] MEDS ORDERED: GLY IV SCH (09:00)
== END 2016-11-30 15:39 | disposition home or self-care (01) | DRG 167 ==
LOC: EDUNIT# → OBSVTOIN 15:24 → F2N 21:06 → F2W 11-29 17:50
PROVIDERS: ADMIT Family Medicine; ATTEND Family Medicine
PROC: 06703DZ Dilation of Inferior Vena Cava with Intraluminal Device, Percutaneous Approach (ICD-10-PCS; principal; 2016-11-28 19:55)
DX: I26.99 Other pulmonary embolism without acute cor pulmonale (principal); D68.59 Other primary thrombophilia; G61.81 Chronic inflammatory demyelinating polyneuritis; D62 Acute posthemorrhagic anemia; I82.492 Acute embolism and thrombosis of other specified deep vein of left lower extremity; D56.3 Thalassemia minor; Z85.51 Personal history of malignant neoplasm of bladder; Z87.891 Personal history of nicotine dependence
CPT/HCPCS: 85520-90; 97162-GP; C1769; G8978-GP-CI; G8979-GP-CI; G8980-GP-CI; J1644; J1650; J2250; J3010; Q9967

== ENCOUNTER 2017-01-02 23:52 | Emergency (ER) | payer OTHER ==
--- NOTE | 2017-01-03 00:04 | EDPHY ---
H & P Time Seen by Provider: 01/02/17 23:59 HPI/ROS: Chief Complaint: Shortness of breath HPI: 71-year-old male who had a PE and DVT a month ago. Patient had a Beata filter placed and is currently taking Pradaxa. Patient states that this afternoon he started having worsening shortness of breath similar to when he had his PE. States that this occurred primarily was walking up stairs. Right now he is "not feeling normal "he also had a near syncopal episode. Patient states when he had his PE last time he did have syncopal episode at that time. Denies any fevers or chills. No cough. No chest pain. No nausea or vomiting. Has been having dyspnea on exertion but this is now worse today. ROS: 10 point Review of Systems is negative except as noted in the HPI. 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 Iron deficiency anemia Social History: No smoking, no alcohol, no recreational drug use Family History: non-contributory Physical Exam: Gen: Awake, Alert, No Distress HEENT: Nose: no rhinorrhea Eyes: PERRLA, EOMI Mouth: Moist mucosa Neck: Supple, no JVD Chest: nontender, lungs clear to auscultation Heart: S1, S2 normal, no murmur Abd: Soft, non-tender, no guarding Back: no CVA tenderness, no midline tenderness Ext: Mildly edematous left leg, non-tender Skin: no rash Neuro: CN II-XII intact, Sensation grossly intact, Strength 5/5 in bilateral upper and lower extremities - Medical/Surgical History Hx Asthma: No Hx Chronic Respiratory Disease: No Hx Diabetes: No Hx Cardiac Disease: No Hx Renal Disease: No Hx Cirrhosis: No Hx Alcoholism: No Hx HIV/AIDS: No Hx Splenectomy or Spleen Trauma: No Other PMH: BLADDER CANCER, neobladder, 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, MVP, CIDP - Social History Smoking Status: Former smoker Constitutional: Initial Vital Signs Temperature (C) 37.0 C 01/03/17 00:02 Heart Rate 99 01/03/17 00:02 Respiratory Rate 18 01/03/17 00:02 Blood Pressure 171/90 H 01/03/17 00:02 O2 Sat (%) 97 01/03/17 00:02 O2 Delivery Mode Room Air O2 (L/minute) 2 Allergies/Adverse Reactions: No Known Allergies Allergy (Verified 05/19/16 21:23) Home Medications: Medication Instructions Recorded Acetaminophen [Tylenol ES 500 mg 500 mg PO Q6 PRN 11/28/16 (*)] Cholecalciferol Vit D3 [Vitamin D3 2,000 units PO HS 11/28/16 (*)] Clobetasol 0.05% [Temovate Cream] 1 aristeo TP DAILY PRN 11/28/16 Docusate Sodium [Colace 100 MG (*)] 300 mg PO DAILY 11/28/16 Immun Glob G(IgG)/Gly/Iga 0-50 100 ml IV Q30D 11/28/16 [Gammaplex 10 Gram/100 ml Vial] Latanoprost 0.005% [Xalatan 0.005% 1 drops EACHEYE HS 11/28/16 (*)] Levocetirizine Dihydrochloride 5 mg PO DAILY 11/28/16 [Xyzal] Naloxegol Oxalate [Movantik] 25 mg PO DAILY 11/28/16 Timolol 0.5% [TIMOPTIC 0.5% (*)] 1 drop EACHEYE DAILY 11/28/16 oxyCODONE IR [Oxycodone Ir (*)] 5 mg PO Q8H PRN 11/28/16 predniSONE 5 mg PO DAILY 11/28/16 Pradaxa 01/02/17 Medical Decision Making - Diagnostics EKG Interpretation: ECG time 12:05 a.m. sinus rhythm with a rate of 91. Normal axis, normal intervals, he has minimal ST depression in the lateral leads. This is unchanged from an ECG on 11/29/16. Imaging Results: CT scan is the chest is negative. The old PEG has resolved. There is no new clot. There are no findings per Dr. Naranjo. Imaging: Discussed imaging studies w/ cushion mat maker Radiologist ED Course/Re-evaluation: 71-year-old male presenting with new shortness of breath tonight similar to his prior PE. ECG is unchanged from past. Troponin is negative. His white count is normal. CT scan shows a resolution was prior PEs with no acute findings at this time. He is ambulating unassisted. He is not hypoxemic. He is not tachycardic here on further evaluation. He is resting comfortably. Will discharge with follow-up with his primary care physician. Symptoms been going on for several hours and I do not suspect acute coronary syndrome at this time. - Data Points Laboratory Results: Laboratory Results 01/03/17 00:00 01/03/17 00:00 01/03/17 01/03/17 00:00 00:00 WBC 8.90 10^3/uL 10^3/uL (3.80-9.50) RBC 5.92 10^6/uL 10^6/uL (4.40-6.38) Hgb 11.6 g/dL L g/dL (13.7-17.5) Hct 37.2 % L % (40.0-51.0) MCV 62.8 fL L fL (81.5-99.8) MCH 19.6 pg L pg (27.9-34.1) MCHC 31.2 g/dL L g/dL (32.4-36.7) RDW 21.5 % H % (11.5-15.2) Plt Count 336 10^3/uL 10^3/uL (150-400) MPV 10.0 fL fL (8.7-11.7) Neut % (Auto) 77.7 % H % (39.3-74.2) Lymph % (Auto) 13.9 % L % (15.0-45.0) [place] % (Auto) 6.7 % % (4.5-13.0) Eos % (Auto) 0.9 % % (0.6-7.6) Baso % (Auto) 0.6 % % (0.3-1.7) Nucleat RBC Rel Count 0.0 % % (0.0-0.2) Absolute Neuts (auto) 6.91 10^3/uL H 10^3/uL (1.70-6.50) Absolute Lymphs (auto) 1.24 10^3/uL 10^3/uL (1.00-3.00) Absolute Monos (auto) 0.60 10^3/uL 10^3/uL (0.30-0.80) Absolute Eos (auto) 0.08 10^3/uL 10^3/uL (0.03-0.40) Absolute Basos (auto) 0.05 10^3/uL 10^3/uL (0.02-0.10) Absolute Nucleated RBC 0.00 10^3/uL 10^3/uL (0-0.01) Immature Gran % 0.2 % % (0.0-1.1) Immature Gran # 0.02 10^3/uL 10^3/uL (0.00-0.10) Platelet Estimate ADEQUATE (ADEQ) Hypochromasia 1+ H Microcytic Cells 2+ H Target Cells 1+ H Smear Review By Pending Sodium 142 mEq/L mEq/L (134-144) Potassium 4.1 mEq/L mEq/L (3.5-5.2) Chloride 106 mEq/L mEq/L (97-110) Carbon Dioxide 23 mEq/l mEq/l (22-31) Anion Gap 13 mEq/L mEq/L (8-16) BUN 21 mg/dL mg/dL (7-23) Creatinine 0.9 mg/dL mg/dL (0.7-1.3) Estimated GFR > 60 Glucose 106 mg/dL H mg/dL (70-100) Calcium 9.9 mg/dL mg/dL (8.5-10.4) Troponin I < 0.012 ng/mL ng/mL (0.000-0.034) Medications Given: Discontinued Medications Diphenhydramine HCl (Benadryl Injection) 50 mg IVP EDNOW ONE Stop: 01/03/17 01:12 Last Admin: 01/03/17 01:18 Dose: Not Given Oxycodone/Acetaminophen (Percocet 5/325) 1 tab PO EDNOW ONE Stop: 01/03/17 00:33 Last Admin: 01/03/17 00:33 Dose: 1 tab Departure - Departure Disposition: Home, Routine, Self-Care Clinical Impression: Dyspnea Condition: Good Instructions: Dyspnea (ED) Additional Instructions: Follow up with primary care physician in 2-3 days for further evaluation. Return to the emergency department for increasing shortness of breath, chest pain, fevers, chills, or any other concerns. Referrals: HECTOR FELIPE [Primary Care Provider] - As per Instructions
[2017-01-03 00:05] VITALS: TEMP 98.6
--- NOTE | 2017-01-03 00:10 | CPEKG ---
Heart Rate: 91 RR Interval: 659 P-R Interval: 144 QRSD Interval: 82 QT Interval: 348 QTC Interval: 429 P Kennard: 60 QRS Kennard: 50 T Wave Kennard: -1 EKG Severity - OTHERWISE NORMAL ECG - EKG Impression: SINUS RHYTHM EKG Impression: MINIMAL ST DEPRESSION, LATERAL LEADS Electronically Signed By: Boris Rudd 03-Jan-2017 06:35:14
[2017-01-03 00:24] LABS: % IMMATURE GRANULYOCYTES 0.2 % (0.0-1.1); ABSOLUTE IMMATURE GRANULOCYTES 0.02 10^3/uL (0.00-0.10); ADD DIFF? NO; ADD MORPH? YES; ADD SCAN? NO; ATYPICAL LYMPHOCYTE FLAG 10 (0-99); FRAGMENT RBC FLAG 80 (0-99); HEMATOCRIT 37.2 % (40.0-51.0); HEMOGLOBIN 11.6 g/dL (13.7-17.5); LEFT SHIFT FLG 0 (0-99); LIPEMIA HEMOLYSIS FLAG 80 (0-99); MEAN CELL HEMOGLOBIN 19.6 pg (27.9-34.1); MEAN CELL HEMOGLOBIN CONCENTR. 31.2 g/dL (32.4-36.7); PLATELET CLUMPS FLAG 10 (0-99); PLATELET COUNT 336 10^3/uL (150-400); RED BLOOD CELL COUNT 5.92 10^6/uL (4.40-6.38)
[2017-01-03] MEDS ORDERED: OXYCODONE/APAP 5/325 TAB ONE (00:30)
[2017-01-03] MEDS ORDERED: OXYCODONE/APAP 5/325 TAB PO ONE (00:32)
[2017-01-03 00:39] LABS: MEAN CELL VOLUME 62.8 fL (81.5-99.8); RED CELL DISTRIBUTION WIDTH 21.5 % (11.5-15.2)
[2017-01-03 00:40] LABS: ANION GAP 13 mEq/L (8-16); CALCIUM 9.9 mg/dL (8.5-10.4); CARBON DIOXIDE 23 mEq/l (22-31); CHLORIDE 106 mEq/L (97-110); CREATININE 0.9 mg/dL (0.7-1.3); GLOMERULAR FILTRATION RATE > 60; GLUCOSE 106 mg/dL (70-100); POTASSIUM 4.1 mEq/L (3.5-5.2); SODIUM 142 mEq/L (134-144)
[2017-01-03 00:52] LABS: TROPONIN I < 0.012 ng/mL (0.000-0.034)
[2017-01-03] MEDS ORDERED: IOPAMIDOL (ISOVUE 370) 100 ML BTL IV ONE (01:02)
[2017-01-03 01:25] LABS: MICROCYTES 2+; PLATELET ESTIMATE ADEQUATE (ADEQ)
[2017-01-03 01:26] LABS: HYPOCHROMIA 1+; TARGET CELLS 1+
[2017-01-03 02:06] VITALS: BP 177/90; PULSE 78; RESP 16; O2SAT 99
== END 2017-01-03 02:06 | disposition home or self-care (01) ==
DX: R06.00 Dyspnea, unspecified (principal); Z85.51 Personal history of malignant neoplasm of bladder; Z87.891 Personal history of nicotine dependence
CPT/HCPCS: J1200; Q9967

== ENCOUNTER 2017-03-01 07:56 | Day surgery (SDC) | payer OTHER ==
[~2017-03-01 07:56] MED LIST changes: +FLUMAZENIL 0.5 MG/5 ML MDV IVP PRN; -IOPAMIDOL (ISOVUE-300) 100 ML BTL IV ONE; +MEPERIDINE 25 MG/ML SYR IVP PRN; +MIDAZOLAM 2 MG/2 ML VIAL IVP PRN; +NALOXONE HCL 0.4 MG/ML INJ IVP PRN; +PROTAMINE SULFATE 50 MG/5 ML VIAL IVP PRN; +fentaNYL 100 MCG/2 ML INJ IVP PRN
[2017-03-01] MEDS ORDERED: NS 1,000 ML IV SCH (08:00)
[2017-03-01 08:57] LABS: INR 1.03 (0.83-1.16); PROTIME(PATIENT) 13.7 SEC (12.0-15.0)
[2017-03-01] MEDS ORDERED: ACETAMINOPHEN 325 MG TAB PO PRN (10:03)
[2017-03-01] MEDS ORDERED: ONDANSETRON 4 MG/2 ML VIAL IVP PRN (10:03)
--- NOTE | 2017-03-01 10:07 | PDGENHP ---
History & Physical Chief Complaint: LEFT PELVIC MASS WITH LEFT FOOT DROP History of Present Illness: PELVIC PAIN, LEFT FOOT DROP, PRIOR BLADDER CANCER Pertinent Past, Social, Family History: PRIOR BLADDER CANCER POST SURGERY Relevant Physical Exam: SOFT ABDOMEN Cardiorespiratory Assessment: RRR, CLEAR LUNGS
--- NOTE | 2017-03-01 10:07 | PDPROPOC ---
Sedation Plan of Care Sedation Plan of Care: vital signs stable, mental status noted, patient educated of risks, benefits, alternatives, patient can tolerate sedation ASA Classification: ASA 1 Planned drugs: fentanyl, midazolam Mallampati Score: Class 2 Mallampati Reference Image: Patient passed 3-3-2 rule?: Yes
--- NOTE | 2017-03-01 10:10 | PDRADPN ---
Radiology Procedure Note Date of Procedure: 03/01/17 Radiologist: Garret White Anesthesia: IV Sedation, Local (Specify) (LIDOCAINE LEFT BUTTOCK REGION) Pre-op Diagnosis: LEFT PELVIC MASS Post-op Diagnosis: LEFT PELVIC MASS Indication: LEFT PELVIC MASS Procedure: LEFT PELVIC MASS CT GUIDED BIOPSY Finding(s): LEFT PELVIC MASS Inf/Abcess present in the surg proc area at time of surgery?: No Depth: Superfical (Skin SQ) EBL: Minimal Complications: NONE Specimen(s): 5 BIOPSY SPECIMENS SENT FOR CYTOLOGY, GRAMS STAIN AND CULTURE, PATH.
[2017-03-01 10:34] VITALS: TEMP 97.9
[2017-03-01 10:36] VITALS: PULSE 65; RESP 16
[2017-03-01 10:48] VITALS: BP 164/82; O2SAT 96
== END 2017-03-01 11:11 | disposition home or self-care (01) ==
LOC: FIMAGING 07:56
PROVIDERS: ATTEND Radiology Diagnostic Radiology
PROC: 0WBH3ZX Excision of Retroperitoneum, Percutaneous Approach, Diagnostic (ICD-10-PCS; principal; 2017-03-01 10:06)
DX: C79.89 Secondary malignant neoplasm of other specified sites (principal); Z85.51 Personal history of malignant neoplasm of bladder
CPT/HCPCS: J2250; J3010

== ENCOUNTER → 2017-03-07 | Outpatient (CLI) | payer OTHER | LOC: FIMAGING 08:37 | PROVIDERS: ATTEND Internal Medicine Hematology & Oncology | DX: C67.9 Malignant neoplasm of bladder, unspecified (principal); C78.6 Secondary malignant neoplasm of retroperitoneum and peritoneum; C79.51 Secondary malignant neoplasm of bone | CPT/HCPCS: 78306; A9503 ==

== ENCOUNTER 2017-07-13 16:12 | Emergency (ER) | payer OTHER ==
[2017-07-13 16:24] VITALS: BP 165/83
--- NOTE | 2017-07-13 17:07 | EDPHY ---
H & P Stated Complaint: ST, congestion x 2 days Time Seen by Provider: 07/13/17 16:21 HPI/ROS: CHIEF COMPLAINT: Throat pain HISTORY OF PRESENT ILLNESS: This is a 72-year-old male with a history of bladder cancer. He underwent cystectomy approximately 6 years ago. He has been diagnosed with recurrence and states that he has a tumor involving his sciatic nerve. He was initially treated with unsuccessfully chemotherapy. Chemotherapy was discontinued 2 months ago and he is now on an experimental targeted therapy. It is an oral treatment that he takes daily. He presents today complaining of pain in his throat/mouth. This is on the left side. He has a dry mouth due to the medication that he is taking but tells me that this is pain that is different from the dry mouth he has been experiencing. It has been present for 2 days. He has been taking vitamin C. No tooth ache. He does not feel particularly short of breath and has not had a cough. He denies fever. He has not had chest pain. No abdominal symptoms. REVIEW OF SYSTEMS: A ten point review of systems was performed and is negative with the exception of the items mentioned in the HPI. Past medical history: 1. Bladder cancer on a targeted therapy 2. Left lower extremity DVT on Pradaxa Past surgical history: Cystectomy 6 years ago for bladder cancer Social history: He is . 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 He does not use tobacco or alcohol products. General Appearance: Alert. Vital signs reviewed. Afebrile. Eyes: Pupils equal and round, no conjunctival injection, no discharge. Anicteric. ENT, Mouth: Mucous membranes are dry. There is mild left palatal erythema and a couple of small areas of white plaque on the left posterior palate. No oral pharyngeal edema. Neck: No lymphadenopathy, supple. Respiratory: Lungs are clear to auscultation; no wheezes, rales, or rhonchi. Cardiovascular: Regular rate and rhythm; no murmur, rub, or gallop. Gastrointestinal: Abdomen is soft and nontender, no masses or organomegaly, bowel sounds normal. Skin: Warm and dry, no rashes on exposed skin, normal color. Neurological: Alert and oriented. Moving all four extremities easily and equally. Psychiatric: Normal affect. 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, MVP, CIDP, L DVT, Glaucoma, HTN - Social History Smoking Status: Former smoker Constitutional: Initial Vital Signs Temperature (C) 37 C 07/13/17 16:19 Heart Rate 75 07/13/17 16:19 Respiratory Rate 18 07/13/17 16:19 Blood Pressure 165/83 H 07/13/17 16:19 O2 Sat (%) 96 07/13/17 16:19 Allergies/Adverse Reactions: No Known Allergies Allergy (Verified 03/01/17 08:40) Home Medications: Medication Instructions Recorded Cholecalciferol Vit D3 [Vitamin D3 2,000 units PO HS 11/28/16 (*)] Docusate Sodium [Colace 100 MG (*)] 300 mg PO DAILY 11/28/16 Latanoprost 0.005% [Xalatan 0.005% 1 drops EACHEYE HS 11/28/16 (*)] Naloxegol Oxalate [Movantik] 25 mg PO DAILY 11/28/16 Timolol 0.5% [TIMOPTIC 0.5% (*)] 1 drop EACHEYE DAILY 11/28/16 oxyCODONE IR [Oxycodone Ir (*)] 5 mg PO Q8H PRN 11/28/16 Pradaxa 150 mg PO BID 01/02/17 Combigan (*) 07/13/17 Cosopt (*) 07/13/17 Fentanyl 07/13/17 Nystatin Susp [Mycostatin Oral 5 ml MM QID 10 Days ml 07/13/17 Liquid] Medical Decision Making ED Course/Re-evaluation: The appearance of his throat/palate is suggestive of oral candidiasis. I do not suspect strep throat, epiglottitis, or retropharyngeal abscess. He does not appear ill or septic. I am prescribing oral swish and swallow nystatin and made some recommendations for other symptomatic treatments. He is scheduled to see his oncologist in 2 days. We reviewed the danger signs that should prompt him to be re-evaluated. Departure - Departure Disposition: Home, Routine, Self-Care Clinical Impression: Candidiasis of mouth Condition: Good Instructions: Oral Candidiasis (ED) Additional Instructions: I am prescribing nystatin. You should swish the surrounding her mouth and swallow it. Use 5 mL at a time. You should do this 4 times daily. The prescription is for a [address] Jeff that you have been started on this medication and follow his instructions concerning the medication. It is also fine use Tylenol or ibuprofen for mild discomfort. Throat lozenges are fine too. I also recommend [place] cold care throat coat tea with added honey. Be sure that you continue to drink lots of water. Referrals: Carlo Jeff MD [Primary Care Provider] - As per Instructions Prescriptions: Nystatin Susp [Mycostatin Oral Liquid] 5 ml MM QID 10 Days ml
== END 2017-07-13 17:16 | disposition home or self-care (01) ==
LOC: CED 16:12
DX: B37.0 Candidal stomatitis (principal); I10 Essential (primary) hypertension; Z85.51 Personal history of malignant neoplasm of bladder; Z87.891 Personal history of nicotine dependence

== ENCOUNTER 2017-10-17 16:02 | Emergency (ER) | payer OTHER ==
--- NOTE | 2017-10-17 16:26 | EDPHY ---
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, MVP, CIDP, L DVT, Glaucoma, HTN - Social History Smoking Status: Former smoker Constitutional: Initial Vital Signs Temperature (C) 36.7 C 10/17/17 16:21 Heart Rate 68 10/17/17 16:21 Respiratory Rate 18 10/17/17 16:21 Blood Pressure 182/95 H 10/17/17 16:21 O2 Sat (%) 96 10/17/17 16:21 O2 Delivery Mode Room Air Allergies/Adverse Reactions: No Known Allergies Allergy (Verified 10/17/17 16:20) Home Medications: Medication Instructions Recorded Cholecalciferol Vit D3 [Vitamin D3 2,000 units PO HS 11/28/16 (*)] Docusate Sodium [Colace 100 MG (*)] 300 mg PO DAILY 11/28/16 Latanoprost 0.005% [Xalatan 0.005% 1 drops EACHEYE HS 11/28/16 (*)] Naloxegol Oxalate [Movantik] 25 mg PO DAILY 11/28/16 Timolol 0.5% [TIMOPTIC 0.5% (*)] 1 drop EACHEYE DAILY 11/28/16 oxyCODONE IR [Oxycodone Ir (*)] 5 mg PO Q8H PRN 11/28/16 Pradaxa 150 mg PO BID 01/02/17 Combigan (*) 07/13/17 Cosopt (*) 07/13/17 Fentanyl 07/13/17 Nystatin Susp [Mycostatin Oral 5 ml MM QID 10 Days ml 07/13/17 Liquid] Medical Decision Making - Diagnostics Imaging Results: Imaging Impressions Head CT 10/17/17 16:51 Impression: No acute intracranial findings. Dr. Nguyễn was notified of these findings by telephone at 6:04 PM on 10/17/2017 Imaging: Discussed imaging studies w/ at home independent call center agent Radiologist ED Course/Re-evaluation: CHIEF COMPLAINT: Feeling dizzy and somewhat confused at times HISTORY OF PRESENT ILLNESS: 72-year-old gentleman with stage IV bladder cancer in bony metastases. He has been having some difficulty with staying awake and some cognition at times. Mostly he feels a little bit dizzy and feels more lethargic than usual. He denies any fevers or chills. He denies any recent chemotherapeutic. He denies any changes in his meds. He denies any heart palpitations or irregular heartbeats. REVIEW OF SYSTEMS: A comprehensive 10 system review of systems is otherwise negative aside from elements mentioned in the history of present illness and medical decision making. PHYSICAL EXAM: HR, BP, O2 Sat, RR. Temp noted General Appearance: Alert, well hydrated, appropriate, and non-toxic appearing. Head: Atraumatic without scalp tenderness or obvious injury Eyes: Pupils equal, round, reactive to light and accommodation, EOMI, no trauma , no injection. Ears: Clear bilaterally, no perforation, normal landmarks Nose: Atraumatic, no rhinorrhea, clear. Throat: There is no erythema or exudates, no lesions, normal tonsils, mucus membranes moist. Neck: Supple, 2+ carotid upstroke, nontender, no lymphadenopathy. Respiratory: No retractions, no distress, no wheezes, and no accessory muscle use. Lungs are clear to auscultation bilaterally. Cardiovascular: Regular rate and rhythm, no murmurs, rubs, or gallops. Bilateral carotid, radial, dorsalis pedis, and posterior tibial pulses intact. Good capillary refill all extremities. Gastrointestinal: Abdomen is soft, nontender, non-distended, no masses, no rebound, no guarding, no peritoneal signs. Musculoskeletal: Normal active ROM of all extremities, atraumatic. Neurological: Alert, appropriate, and interactive. The patient has normal DTRs and non-focal cranial nerves, motor, sensory, and cerebellar exam. Skin: No rashes, good turgor, no nodules on palpation. Past medical history: Stage IV bladder cancer with metastases, DVTs and PEs Past surgical history: Prior surgical notes reviewed regarding bladder cancer Family history: Noncontributory Social history: , retired, does not abuse tobacco drugs or alcohol DIAGNOSTICS/PROCEDURES/CRITICAL CARE TIME: The 12 lead EKG was interpreted by myself. Sinus rhythm with PAC. See hard copy and/or "tracemaster" electronic copy for interpretation. 18:[address] Garg, radiologist. Study: CT of the brain with and without contrast Indication: Stage IV bladder cancer rule out metastases Results: CT scan of the brain was obtained. The results of the study are no acute abnormalities. The study was read by the radiologist, Dr. Garg. I viewed the images myself on the PACS system. DIFFERENTIAL DIAGNOSIS: The differential diagnosis for the patient's brief and intermittent confusion and lethargy included but was not limited to hypoglycemia , infectious process, electrolyte abnormality, head injury, neurologic process, anemia, cardiac process, and intoxicants. MEDICAL DECISION MAKING: This patient's laboratory studies are unremarkable. His urinalysis unremarkable. His brain with without contrast on the CT scan is unremarkable for any metastases. I was planning on performing a more sensitive brain scan with an MRI however the patient would like to schedule as an outpatient. He is basically feeling at baseline. I find no reason for his lethargy. He does have significant cancer and maybe increased metabolic demands. He will follow up with his oncologist. He would like to leave now and not wait for MRI. He will set up MRI as an outpatient. This is fine with me as there is no acute change in his status. - Data Points Laboratory Results: Laboratory Results 10/17/17 16:40 10/17/17 16:40 10/17/17 10/17/17 10/17/17 17:05 17:03 16:40 WBC RBC Hgb POC Hgb 13.9 gm/dL gm/dL (13.7-17.5) Hct POC Hct 41 % % (40-51) MCV MCH MCHC RDW Plt Count MPV Neut % (Auto) Lymph % (Auto) [place] % (Auto) Eos % (Auto) Baso % (Auto) Nucleat RBC Rel Count Absolute Neuts (auto) Absolute Lymphs (auto) Absolute Monos (auto) Absolute Eos (auto) Absolute Basos (auto) Absolute Nucleated RBC Immature Gran % Immature Gran # POC Sodium 141 mEq/L mEq/L (135-145) Sodium 140 mEq/L mEq/L (135-145) POC Potassium 4.1 mEq/L mEq/L (3.3-5.0) Potassium 4.3 mEq/L mEq/L (3.3-5.0) POC Chloride 103 mEq/L mEq/L (97-110) Chloride 104 mEq/L mEq/L (97-110) Carbon Dioxide 28 mEq/l mEq/l (22-31) Anion Gap 8 mEq/L mEq/L (8-16) POC BUN 17 mg/dL mg/dL (7-23) BUN 19 mg/dL mg/dL (7-23) Creatinine 0.8 mg/dL mg/dL (0.7-1.3) POC Creatinine 0.8 mg/dL mg/dL (0.7-1.3) Estimated GFR > 60 Glucose 93 mg/dL mg/dL (70-100) POC Glucose 93 mg/dL mg/dL (70-100) Calcium 10.0 mg/dL mg/dL (8.5-10.4) POC Troponin I 0.01 ng/mL ng/mL (0.00-0.08) NT-Pro-B Natriuret Pep 124 pg/mL pg/mL (0-125) 10/17/17 16:40 WBC 6.62 10^3/uL 10^3/uL (3.80-9.50) RBC 5.49 10^6/uL 10^6/uL (4.40-6.38) Hgb 12.6 g/dL L g/dL (13.7-17.5) POC Hgb Hct 39.9 % L % (40.0-51.0) POC Hct MCV 72.7 fL L fL (81.5-99.8) MCH 23.0 pg L pg (27.9-34.1) MCHC 31.6 g/dL L g/dL (32.4-36.7) RDW 16.9 % H % (11.5-15.2) Plt Count 246 10^3/uL 10^3/uL (150-400) MPV 9.8 fL fL (8.7-11.7) Neut % (Auto) 80.8 % H % (39.3-74.2) Lymph % (Auto) 9.5 % L % (15.0-45.0) [place] % (Auto) 7.1 % % (4.5-13.0) Eos % (Auto) 1.2 % % (0.6-7.6) Baso % (Auto) 0.6 % % (0.3-1.7) Nucleat RBC Rel Count 0.0 % % (0.0-0.2) Absolute Neuts (auto) 5.35 10^3/uL 10^3/uL (1.70-6.50) Absolute Lymphs (auto) 0.63 10^3/uL L 10^3/uL (1.00-3.00) Absolute Monos (auto) 0.47 10^3/uL 10^3/uL (0.30-0.80) Absolute Eos (auto) 0.08 10^3/uL 10^3/uL (0.03-0.40) Absolute Basos (auto) 0.04 10^3/uL 10^3/uL (0.02-0.10) Absolute Nucleated RBC 0.00 10^3/uL 10^3/uL (0-0.01) Immature Gran % 0.8 % % (0.0-1.1) Immature Gran # 0.05 10^3/uL 10^3/uL (0.00-0.10) POC Sodium Sodium POC Potassium Potassium POC Chloride Chloride Carbon Dioxide Anion Gap POC BUN BUN Creatinine POC Creatinine Estimated GFR Glucose POC Glucose Calcium POC Troponin I NT-Pro-B Natriuret Pep Point of Care Test Results: Chemistry 10/17/17 10/17/17 17:05 17:03 POC Sodium 141 mEq/L mEq/L (135-145) POC Potassium 4.1 mEq/L mEq/L (3.3-5.0) POC Chloride 103 mEq/L mEq/L (97-110) POC BUN 17 mg/dL mg/dL (7-23) POC Creatinine 0.8 mg/dL mg/dL (0.7-1.3) POC Glucose 93 mg/dL mg/dL (70-100) POC Troponin I 0.01 ng/mL ng/mL (0.00-0.08) ISTAT H&H 10/17/17 17:05 POC Hgb 13.9 gm/dL gm/dL (13.7-17.5) POC Hct 41 % % (40-51) Departure - Departure Disposition: Home, Routine, Self-Care Clinical Impression: Lethargy Condition: Good Instructions: Weakness (ED) Additional Instructions: Please follow up with Dr. Jeff for MRI with and without contrast of your brain to rule out metastases. Referrals: Carlo Jeff MD [Primary Care Provider] - As per Instructions
[2017-10-17 17:08] LABS: PLATELET COUNT 246 10^3/uL (150-400)
[2017-10-17] MEDS ORDERED: IOPAMIDOL (ISOVUE-300) 100 ML BTL ONE (17:11)
[2017-10-17 19:44] VITALS: BP 183/103
--- NOTE | 2017-10-26 15:00 | CPEKG ---
Test Reason : OPEN Blood Pressure : / mmHG Vent. Rate : 069 BPM Atrial Rate : 070 BPM P-R Int : 159 ms QRS Dur : 088 ms QT Int : 381 ms P-R-T Axes : 026 047 003 degrees QTc Int : 408 ms Sinus rhythm Atrial premature complex Confirmed by Daniel Nguyễn ([id number]) on 10/26/2017 2:59:25 PM Referred By: Confirmed By:Daniel Nguyễn
== END 2017-10-17 19:48 | disposition home or self-care (01) ==
DX: R53.83 Other fatigue (principal); Z85.51 Personal history of malignant neoplasm of bladder; Z85.830 Personal history of malignant neoplasm of bone
CPT/HCPCS: 82435-PO; 82565-PO; 82947-PO; 84132-PO; 84295-PO; 84484-PO; 84520-PO; 85014-PO; Q9967

== ENCOUNTER → 2017-12-17 | Emergency (ER) | payer OTHER ==
[2017-12-17 20:08] VITALS: BP 204/101
== END ==
DX: Z53.21 Procedure and treatment not carried out due to patient leaving prior to being seen by health care provider (principal)

== ENCOUNTER → 2018-03-28 | Outpatient (CLI) | payer OTHER | LOC: FIMAGING 12:39 | PROVIDERS: ATTEND Nurse Practitioner | DX: I82.512 Chronic embolism and thrombosis of left femoral vein (principal); L53.9 Erythematous condition, unspecified ==

== ENCOUNTER → 2018-07-29 | Outpatient (CLI) | payer OTHER | LOC: FLAB 11:21 ==